=== PATIENT | female | born 1990 | race Hispanic/Latino ===

== ENCOUNTER 2021-11-08 12:49 | Emergency (ER) | payer SELFPAY ==
[2021-11-08 13:04] VITALS: BP 130/90
[2021-11-08 14:21] LABS: Cannabinoid Screen,Urine Negative; Cocaine Screen,Urine Negative; Methadone Screen,Urine Negative; Opiate Screen,Urine Negative
[2021-11-08 14:57] LABS: Amphetamine Screen,Urine Positive; Benzodiazepines Screen,Urine Positive
== END 2021-11-08 19:30 | disposition left against medical advice (07) ==
LOC: ED 12:49
DX: F19.90 Other psychoactive substance use, unspecified, uncomplicated (principal); Z53.21 Procedure and treatment not carried out due to patient leaving prior to being seen by health care provider; Z79.899 Other long term (current) drug therapy
CPT/HCPCS: 80307